=== PATIENT | male | born 1955 | race Caucasian/White ===

== ENCOUNTER 2023-03-21 12:33 | Day surgery (SDC) | payer OTHER, BC ==
[~2023-03-21] VITALS: Ht 165.1 cm; Wt 83.5 kg
[2023-03-21] MEDS ORDERED: fentaNYL citrate 0.05 MG/ML VIAL ONE (13:48)
[2023-03-21] MEDS ORDERED: LIDOCAINE 2% 100 MG/5 ML UJET TP ONE (13:49)
== END 2023-03-21 15:40 | disposition home or self-care (01) ==
LOC: MDS 12:33 → MMU 12:34 → MDS 15:40
PROVIDERS: ATTEND Internal Medicine Gastroenterology
DX: R19.5 Other fecal abnormalities (principal); K62.1 Rectal polyp; K63.5 Polyp of colon; K57.30 Diverticulosis of large intestine without perforation or abscess without bleeding; K64.9 Unspecified hemorrhoids; E78.5 Hyperlipidemia, unspecified; E11.9 Type 2 diabetes mellitus without complications; Z98.0 Intestinal bypass and anastomosis status; Z79.84 Long term (current) use of oral hypoglycemic drugs; Z79.899 Other long term (current) drug therapy
CPT/HCPCS: 45385; 82948; J3010